=== PATIENT | female | born 1965 | race Caucasian/White ===

== ENCOUNTER → 2020-05-08 | Outpatient (CLI) | payer OTHER | LOC: LAB 09:50 | PROVIDERS: ATTEND Nurse Anesthetist, Certified Registered | DX: Z01.812 Encounter for preprocedural laboratory examination (principal); Z20.822 Contact with and (suspected) exposure to COVID-19 | CPT/HCPCS: U0003 ==

== ENCOUNTER → 2020-05-12 | Day surgery (SDC) | payer OTHER ==
[~2020-05-12] MED LIST: IPRATRPIUM/ALBUTEROL 0.5/2.5MG 3 ML NEBU. NEB PRN; IV RINGERS SOLUTION,LACTATED 1,000 ML IV SCH; LIDOCAINE 2% PF 5 ML VIAL. ONE; MIDAZOLAM HCL PF 2 MG/2 ML VIAL. IV ONE; ONDANSETRON PF 4 MG/2 ML VIAL. IV PRN; PROPOFOL 10,000 MCG/ML (20ML) VIAL IV ONE
[2020-05-12 10:10] VITALS: BP 133/98
--- NOTE | 2020-05-14 20:36 | PATHOLOGY ---
[facility] Accession Number: [id number] . 01 Material submitted: . sigmoid colon - SIGMOID COLON POLYP . 01 Clinical history: . SCREENING . 02 Diagnosis: Colonic mucosa, sigmoid colon polyp: - Focally polypoid segment of colonic mucosa showing mild active chronic inflammation. See comment. (JPM:[facility] 05/14/2020) [facility] 05/14/2020 0911 Local . 02 Comment: Sections of the sigmoid colon biopsy reveal segments of colonic mucosa, one of which has a polypoid configuration and shows mild active chronic inflammation, consistent with an inflammatory polyp. The non-polypoid area of this segment and the remaining colon biopsy segment, however, show no evidence of a chronic destructive colitis. There are no adenomatous changes or evidence of malignancy. (JPM:[facility] 05/14/2020) . 02 Electronically signed: . Jesus Negrete MD, Pathologist NPI- [id number] . 01 Gross description: . The specimen is received in formalin, labeled "[place], sigmoid polyp". Received are two segments of pale rueda tissue measuring 0.4 cm each in maximum dimensions. The specimen is submitted entirely in cassette A1. ([facility]; 05/13/2020) QAC/QAC 05/14/2020 0908 Local . 02 Pathologist provided ICD-10: K52.9 . 02 CPT . 274684 Specimen Comment: Report sent to / Performed at: 01 [facility] [address] [id number] MD David Wells MD Phone: [phone] Performed at: 02 [facility] [address] [place], [place] [id number] MD Jesus Negrete MD Phone: [phone]
== END | disposition home or self-care (01) ==
LOC: SURG 08:30
PROVIDERS: ATTEND Internal Medicine Gastroenterology
DX: Z12.11 Encounter for screening for malignant neoplasm of colon (principal); K63.5 Polyp of colon; K52.9 Noninfective gastroenteritis and colitis, unspecified; K63.89 Other specified diseases of intestine; Z83.71 Family history of colonic polyps; Z88.6 Allergy status to analgesic agent; Z88.8 Allergy status to other drugs, medicaments and biological substances; Z79.899 Other long term (current) drug therapy
CPT/HCPCS: 45385; 88305; J2001; J2704; J7120